=== PATIENT | male | born 1995 | race African-American/Black ===

== ENCOUNTER 2016-03-11 00:27 | Emergency (ER) | payer MEDICAID, OTHER ==
[~2016-03-11] VITALS: Ht 182.9 cm; Wt 81.6 kg
[2016-03-11 08:28] VITALS: BP 117/69
== END 2016-03-11 08:31 | disposition home or self-care (01) ==
LOC: ER 00:33
DX: S50.01XA Contusion of right elbow, initial encounter (principal); S39.91XA Unspecified injury of abdomen, initial encounter; V43.52XA Car driver injured in collision with other type car in traffic accident, initial encounter; Y93.89 Activity, other specified; Y99.8 Other external cause status; Y92.89 Other specified places as the place of occurrence of the external cause
CPT/HCPCS: 73070; 74176

== ENCOUNTER 2018-02-13 16:59 | Emergency (ER) | payer MEDICAID ==
[~2018-02-13] VITALS: Ht 177.8 cm; Wt 79.4 kg
[2018-02-13 17:05] VITALS: BP 141/86
[2018-02-13] MEDS: IBUPROFEN 800 MG TAB PO ONE (19:13)
== END 2018-02-13 19:48 | disposition home or self-care (01) ==
LOC: ER 16:59 → EDBD 16:59 → ER 19:48
DX: M62.830 Muscle spasm of back (principal); M62.838 Other muscle spasm; V49.49XA Driver injured in collision with other motor vehicles in traffic accident, initial encounter; Y93.89 Activity, other specified; Y99.8 Other external cause status; Y92.89 Other specified places as the place of occurrence of the external cause
CPT/HCPCS: 72040; 72100